=== PATIENT | female | born 1975 | race Caucasian/White ===

== ENCOUNTER 2018-09-19 15:27 | Emergency (ER) | payer BC ==
--- NOTE | 2018-09-19 16:08 | ED.PDOC ---
History of Present Illness - General Chief Complaint: Abdominal Pain Time Seen by Provider: 09/19/18 16:05 Information Source: patient, Vital Signs reviewed Additional Information: 42 YEAR OLD PRESENTS WITH SUDDEN ONSET OF SEVERE PAIN IN THE LOWER ABDOMEN ( POST COITAL ) 1.30 THIS AFTERNOON SHE FELT SHE WAS GOING TO PASS OUT SHE BELIEVES SHE SHE IS OVULATING THE PAIN WAS SEVERE SHE BECAME DIAPHORETIC AND FELT SHE WAS GOING TO FAINT - History of Present Illness Abdominal Pain Onset Location: [facility] Review of Systems - Review of Systems Constitutional: States: no symptoms reported EENTM: States: no symptoms reported Respiratory: States: no symptoms reported Cardiology: States: no symptoms reported Gastrointestinal/Abdominal: States: abdominal pain Genitourinary: States: no symptoms reported Musculoskeletal: States: no symptoms reported Skin: States: no symptoms reported Neurological: States: no symptoms reported Endocrine: States: no symptoms reported Hematologic/Lymphatic: States: no symptoms reported Past Medical History (General) - Patient Medical History Hx Stroke: No Hx Congestive Heart Failure: No Hx Thyroid Disease: Yes Hx Diabetes: No Surgical History: other - Vaccination History Hx Influenza Vaccination: No Hx Pneumococcal Vaccination: No - Social History Hx Tobacco Use: No Hx Alcohol Use: Yes - Social use - Female History Patient is a Female of Child Bearing Age (10 -59 yrs old): Yes Patient : No Family Medical History - Family History Mother Family History: Unknown Living Status: Unknown Physical Exam - Physical Exam General Appearance: Alert, Comfortable Eyes, Ears, Nose, Throat Exam: PERRL/EOMI, normal ENT inspection, TMs normal, pharynx normal Neck: non-tender, full range of motion, supple Respiratory: chest non-tender, lungs clear, normal breath sounds Cardiovascular/Chest: normal peripheral pulses, regular rate, rhythm, no edema, no gallop, no JVD Gastrointestinal/Abdominal: tenderness, other - SHE IS TENDER ON THE LEFT LOWER QUADRANT NO GAURDING OR REBOUND NOTED Progress - Results/Orders Results/Orders: Laboratory Tests 09/19/18 09/19/18 09/19/18 16:00 16:25 16:25 WBC 12.6 H RBC 4.57 Hgb 13.9 Hct 41.8 MCV 91.7 MCH 30.4 MCHC 33.1 RDW 12.8 Plt Count 267 MPV 8.6 Absolute Neuts (auto) 10.80 H Absolute Lymphs (auto) 1.00 Absolute Monos (auto) 0.70 Absolute Eos (auto) 0.00 Absolute Basos (auto) 0.00 Neutrophils % 86.3 H Lymphocytes % 7.8 L Monocytes % 5.6 Eosinophils % 0.1 L Basophils % 0.2 Sodium 139 Potassium 3.2 L Chloride 100 L Carbon Dioxide 28 Anion Gap 14.2 BUN 21 H Creatinine 0.75 BUN/Creatinine Ratio 28.0 H Random Glucose 94 Serum Osmolality 280.3 Calcium 9.6 Total Bilirubin 0.7 AST 24 ALT 28 Alkaline Phosphatase 48 Serum Total Protein 7.9 Albumin 4.6 Globulin 3.3 Albumin/Globulin Ratio 1.4 Serum HCG, Qual Urine Color Yellow Urine Appearance Clear Urine pH 6.0 Ur Specific [place] 1.015 Urine Protein Negative Urine Glucose (UA) Negative Urine Ketones 15 H Urine Blood Negative Urine Nitrite Negative Urine Bilirubin Negative Urine Urobilinogen 0.2 Ur Leukocyte Esterase Negative Urine RBC 0 Urine WBC 0 Ur Epithelial Cells 0 Urine Bacteria 0 09/19/18 16:25 WBC RBC Hgb Hct MCV MCH MCHC RDW Plt Count MPV Absolute Neuts (auto) Absolute Lymphs (auto) Absolute Monos (auto) Absolute Eos (auto) Absolute Basos (auto) Neutrophils % Lymphocytes % Monocytes % Eosinophils % Basophils % Sodium Potassium Chloride Carbon Dioxide Anion Gap BUN Creatinine BUN/Creatinine Ratio Random Glucose Serum Osmolality Calcium Total Bilirubin AST ALT Alkaline Phosphatase Serum Total Protein Albumin Globulin Albumin/Globulin Ratio Serum HCG, Qual Negative Urine Color Urine Appearance Urine pH Ur Specific [place] Urine Protein Urine Glucose (UA) Urine Ketones Urine Blood Urine Nitrite Urine Bilirubin Urine Urobilinogen Ur Leukocyte Esterase Urine RBC Urine WBC Ur Epithelial Cells Urine Bacteria Departure - Departure Clinical Impression: Abdominal pain, Ovarian cyst Time of Disposition: 16:58 Disposition: Discharge to Home or Self Care Condition: Good Departure Forms: ED Discharge - Pt. Copy, Patient Portal Self Enrollment Instructions: DI for Abdominal Pain-Adult Diet: resume usual diet Referrals: Bryan Rico III, MD [Primary Care Provider] - 1-2 Weeks Prescriptions: Naproxen [Naprosyn] 500 mg PO Q12HRS #30 tab Home Medications: Ambulatory Orders Anastrozole [Arimidex] 0.5 mg PO WKLY 09/19/18 Naproxen [Naprosyn] 500 mg PO Q12HRS #30 tab 09/19/18 Rizatriptan Benzoate [Rizatriptan Benzoate] 1 tablet PO DAILY PRN 09/19/18 Thyroid [[place] Thyroid] 90 mg PO DAILY 09/19/18
[2018-09-19] MEDS ORDERED: KETOROLAC TROMETHAMINE INJ 30 MG/ML VIAL IV ONE (16:11)
--- NOTE | 2018-09-19 16:38 | US ---
NAME: MARCO GIFFORD PROCEDURE: US PELVIS ORDER DATE: 09/19/2018 3:56 PM CDT ACCESSION NUMBER: [id number] Clinical History: sharp, shooting pain Indication: History of two sections. Pelvic pain Comparison: None . TECHNIQUE: A transabdominal and transvaginal pelvic ultrasound was done, followed by Doppler evaluation of the ovaries. FINDINGS: Uterus measures 8.3 x 4.4 x 4.4 centimeters. Note is made of nonvascular scars in the lower uterine segment. There is small amount of fluid in the cervical canal and in the endometrial canal of the lower uterine segment, etiology uncertain The endometrium in double layer thickness measures 7.8 mm and is of normal thickness. There is presence of a 2.9 x 1.6 x 2.3 cm simple cyst in the left ovary, not requiring any imaging follow-up The right ovary measures 2.8 x 1.2 x 1.7 centimeters. The left ovary measures 3.8 x 2.9 x 3.5 centimeters. There is normal color flow and Doppler signal in the right and the left ovary. There are no focal adnexal masses on either side. There is no evidence of any free fluid in the cul-de-sac. IMPRESSION: There is small amount of fluid in the cervical canal and in the endometrial canal of the lower uterine segment, etiology uncertain The endometrium in double layer thickness measures 7.8 mm and is of normal thickness. There is presence of a 2.9 x 1.6 x 2.3 cm simple cyst in the left ovary, not requiring any imaging follow-up Electronically signed by: Royer Jordan MD 09/19/2018 4:36 PM CDT Workstation: [id number]
[2018-09-19] MEDS ORDERED: IBUPROFEN 200 MG TAB ONE (17:09)
[2018-09-19] MEDS ORDERED: IBUPROFEN 200 MG TAB PO ONE (17:16)
[2018-09-19 17:20] VITALS: BP 129/70; TEMP 81; O2SAT 96
== END 2018-09-19 17:20 | disposition home or self-care (01) ==
LOC: ER 15:27
DX: N83.202 Unspecified ovarian cyst, left side (principal); E07.9 Disorder of thyroid, unspecified